=== PATIENT | female | born 1945 | race Caucasian/White ===

== ENCOUNTER → 2019-08-29 15:31 | Outpatient (CLI) | payer MEDICARE, SELFPAY ==
[2019-08-30 14:06] LABS: COVID19 Sendout Not Detected (Not Detect)
== END ==
PROVIDERS: Visit Provider Physician Assistant
DX: Z01.812 Encounter for preprocedural laboratory examination (principal)
CPT/HCPCS: 87635

== ENCOUNTER 2019-09-02 14:49 | Inpatient (IN) | payer MEDICARE, OTHER, SELFPAY ==
[2019-08-25 12:43] VITALS: BMI 26.4
[2019-09-01] VITALS (16 sets, daily range): BP systolic 132–181; BP diastolic 66–112; PULSE 56–83; RESP 11–19; TEMP 35.7–36.7; O2SAT 90–100; BMI 25.2
--- NOTE | 2019-09-01 | DI.RAD.S_ITS ---
PROCEDURE: XR KNEE RT 1TO2V INDICATIONS: TOTAL RIGHT KNEE TECHNIQUE: 2 view(s) of the knee acquired. COMPARISON: [facility] [place], XR KNEE ARTHRITIC SERIES BI, 03/25/2019, 16:15. FINDINGS: Bones: Patient is status post knee joint arthroplasty. Hardware components are in expected positions. Visualized bony structures are intact. Soft tissues: Overlying postoperative changes are noted. IMPRESSION: Satisfactory appearance of the right total knee arthroplasty. Dictated by: Kenan Cheung M.D. on 09/01/2019 at 16:06 Approved by: Kenan Cheung M.D. on 09/01/2019 at 16:17
[2019-09-01] MEDS: ACETAMINOPHEN 325 MG TABLET 975 MG PO (12:15)
[2019-09-01] MEDS: LACTATED RINGERS 1,000 ML 42 ML IV ×2 (12:15→15:52)
--- NOTE | 2019-09-01 13:08 | PM.OP.1 ---
Operative Date/Time/Diagnoses Date of procedure: 09/01/19 Time of procedure: 15:23 Pre-op diagnosis: Right knee osteoarthritis Post-op diagnosis: same Procedure & Clinicians Procedure: Right total knee arthroplasty Same procedure as scheduled: Yes Indications: The patient presents today for total knee arthroplasty after failure of conservative treatment. The nature of the procedure including the risks and benefits, alternatives, postoperative course and expected outcome were discussed and all questions answered. Consent was obtained. Operative site confirmed and marked. Surgeon: Meir Mustafa Cured Meats Supervisor: Diego Mcneil Anesthesia Type: General and Local Operative Notes Findings: Spinal anesthesia was attempted but unsuccessful. The distal femoral cut was made at +1 as she had a slight flexion contracture. The tibial cut was made at 11 mm off the less affected lateral side. The knee balanced well with just routine osteophyte removal and soft tissue exposure. There was excellent medial and lateral balance in both flexion and extension with a 9 mm tray. Patellar tracking was excellent. Closure Type: primary Specimen(s): none sent Prosthetic devices, grafts, tissues, transplants, or devices: Kat and Nephew Becki BCS: 5 femoral component, 3 tibial component, 9 mm BCS polyethylene tray and 32 x 9 mm round patella Applied: implant(s) Estimated Blood Loss (mL): 5 Blood products transfused: none Tourniquet time (min): 49 Procedure in detail: The patient was taken to the operative suite and placed under anesthesia. The patient was given prophylactic antibiotics prior to surgery. The patient was also given tranexamic acid, 1 g, just prior to surgery for postoperative hemostasis. The lateral knee was prepped and the joint injected with 20 mL of 1% Lidocaine with epinephrine. The knee was then prepped and draped in usual sterile fashion. The leg was exsanguinated with an Esmarch dressing and the tourniquet raised to 250 torr. A 15 cm anterior incision was made. Next a medial trivector arthrotomy was made. The extensor mechanism was marked to ensure accurate repair. Initial exposing dissection was carried out medially and laterally. The knee was then flexed and the intramedullary femoral guide cece placed. The distal femoral cut was made in 6? of valgus at the +23 position. The femoral size was measured and the appropriate cutting block was then placed and the anterior, posterior and chamfer cuts made. The intramedullary tibial alignment cece was then placed. The guide was set to remove approximately 11 mm from the less affected lateral side. The proximal tibial cut was then made with an oscillating saw. All meniscus and bony debris was then removed. Posterior femoral osteophytes removed with a curved osteotome. Flexion extension gaps were checked. No specific balancing was required other than routine exposure and removal of osteophytes. The soft tissues were then injected with a combination of 20 mL of half percent Marcaine with epinephrine and 20 mL of Exparel. The trial components were then placed. The knee was then extended and the patellar thickness was measured and a cut made removing approximately 9 mm of bone. The patella was then sized and drilled. Some excess lateral bone was excised and the patellofemoral ligament released. The knee went into full extension and flexion beyond 130?. There was excellent medial-lateral balance throughout motion. Patellar tracking was excellent. The trial components were removed and the knee was cleansed with Pulsavac irrigation and dried. The final components were cemented with high viscosity vacuum mixed bone cement with antibiotics. The joint was filled with a dilute Betadine solution. The knee was held in extension and the patellar clamped until the cement was adequately cured. The knee was then irrigated. The extensor mechanism was closed with 5 interrupted #1 Vicryl sutures and a running Quill suture at approximately 90 degrees of flexion. The joint was then injected with a combination of 1 g of tranexamic acid and 20 mL of quarter percent Marcaine with epinephrine. The subcutaneous tissue was closed with 2 0 Vicryl. The skin was closed with a Zip-Close device. An Aquacel dressing and Joe wrap were then applied. The patient tolerated the procedure well and was returned to recovery room in good condition. Complications: none Post-operative Condition: stable Disposition: PACU Plan for aftercare: [facility] Care Protocol.
--- NOTE | 2019-09-01 13:10 | PM.PREOP ---
Pre-operative Note COVID-19 COVID-19 status: Negative Result date/Date tested (Pos, Neg/Pending): 08/29/19 Interval Note History & Physical reviewed/Exam performed by Physician: Yes Changes to H&P: No
[2019-09-01] MEDS: CEFAZOLIN 2 GM/100 ML FROZ.PIGGY IV ×2 (14:06→21:55)
[2019-09-01] MEDS: TRANEXAMIC ACID 1,000 MG VIAL 1000 MG IV (14:20)
--- NOTE | 2019-09-01 14:36 | SUR.OPER ---
Supine on padded OR bed. Pillow under head, arms secured on padded armboards <90 degree abduction. Safety belt across torso. Non-operative leg secured with tape over blanket over lower leg. Operative leg secured in Jonathon positioner. Foam padded brace at thigh of operative leg.
--- NOTE | 2019-09-01 14:39 | SUR.OPER ---
zip dressing used
[2019-09-01] MEDS: BUPIVACAINE 0.25% W/ EPI (PF) 40 ML, BUPIVACAINE LIPOSOME 266 MG, SODIUM CHLORIDE 0.9% ... INJ (14:43)
[2019-09-01] MEDS: BUPIVACAINE 0.25% W/ EPI (PF) 20 ML, TRANEXAMIC ACID 1,000 MG, SODIUM CHLORIDE 0.9% 10 ML INJ (14:44)
[2019-09-01] MEDS: LIDOCAINE 1% W/EPI 20 ML INJ (14:46)
[2019-09-01] MEDS: HYDROMORPHONE 2 MG INJ IV ×4 (15:49→16:09)
[2019-09-01] MEDS: OXYCODONE IR 5 MG TABLET PO (16:17)
--- NOTE | 2019-09-01 17:17 | SUR.PHASEI ---
Pt medicated for pain with dilaudid and percolone. Stated pain 07/20. face relaxed, eyes closed between care. Report called to ZUHAIR Trevino. Pt transported up on 1/l nasal cannula. Left pt in stable condition, bed low locked and callbell in hand.
[2019-09-01] MEDS: LACTATED RINGERS 1,000 ML 100 ML IV (17:28)
--- NOTE | 2019-09-01 17:39 | PC.NURSE ---
Addendum entered by Nayla Woody R.N. 09/01/19 20:53: Patient declining to take HS meds due to nausea and sedation effects she experiencing. Original Note: Admission note: Arrived at 1704 from PACU already in bed. Skin tear noted distal to surgical site and covered with Allevyn. At time of admission patient appears to be resting comfortably with eyes closed. Arousable to voice and touch but tends to fall asleep when answering questions appropriately. On 1.5L O2 by NC to maintain sats WNL. Allowing to rest at this time, bed alarm on and functioning, call light in reach, will reeducate when patient is more awake.
[2019-09-01] MEDS: ONDANSETRON 4 MG/2 ML INJ IV (19:56)
[2019-09-01] MEDS: HYDROMORPHONE 0.5 MG INJ 0.2 MG IV (21:58)
[2019-09-01] MEDS: METOCLOPRAMIDE 10 MG/2 ML INJ IV (22:39)
[2019-09-02] VITALS (9 sets, daily range): BP systolic 146–156; BP diastolic 68–90; PULSE 63–89; RESP 16–20; TEMP 36.4–37.3; O2SAT 89–98
[2019-09-02] MEDS: ONDANSETRON 4 MG/2 ML INJ IV ×4 (01:21→20:10)
[2019-09-02] MEDS: HYDROMORPHONE 0.5 MG INJ 0.2 MG IV ×3 (03:23→18:37)
[2019-09-02] MEDS: LACTATED RINGERS 1,000 ML 100 ML IV ×2 (03:51→14:13)
[2019-09-02 05:30] LABS: Hematocrit 39.1 % (36-46); Hemoglobin 12.9 g/dL (12.0-16.0)
[2019-09-02] MEDS: CEFAZOLIN 2 GM/100 ML FROZ.PIGGY IV (05:35)
[2019-09-02] MEDS: METOCLOPRAMIDE 10 MG/2 ML INJ IV ×2 (08:10→17:05)
--- NOTE | 2019-09-02 11:06 | PM.PNPO.1 ---
Subjective Subjective Date Patient Seen: 09/02/19 Time Patient Seen: 11:06 Interval history: Pain is [id number]. Denies fever chills. No nausea vomiting. Patient has gotten up to bedside chair twice with physical therapy. Patient has not walked in halls. Patient does have plans to have assistance at home. Exam Vital Signs (past 8 hours): - 09/02/19 04:15 09/02/19 07:00 Temperature 97.9 F 97.5 F L Pulse Rate 89 81 Respiratory Rate 20 16 Blood Pressure 146/68 H 153/86 H Pulse Oximetry 96 98 Oxygen Delivery Method Nasal Cannula Oxygen Flow Rate 0 Narrative Exam Narrative: Pleasant 74-year-old female resting comfortably in bed in no apparent distress. Right knee dressing is clean, dry and intact. No calf pain. Negative Homans. Right leg is warm and dry. Motor functions intact distally. Sensation grossly intact to light touch. Objective Labs Result Diagrams: 09/02/19 04:55 Labs: Laboratory Results - last 24 hr 09/02/19 04:55 Hgb 12.9 Hct 39.1 Assessment & Plan Post-op Postoperative Procedures: Procedures Operation Date: 09/01/19 12:45 Actual Procedures Side Surgeon p Total Knee Arthroplasty Right Meir Mustafa MD Patient refuses aspirin and will be started on Lovenox for DVT prophylaxis. Mobilize with physical therapy. Likely discharge home in 1-2 days. Quality VTE Deep Vein Thrombosis/Pulmonary Embolism Present on Admission: No
[2019-09-02] MEDS: FLUoxetine 10 MG CAPSULE PO (11:12)
[2019-09-02] MEDS: BUDESONIDE 3 MG CAP PO (11:12)
[2019-09-02] MEDS: ACETAMINOPHEN 325 MG TABLET 650 MG PO ×3 (11:12→20:10)
[2019-09-02] MEDS: HYDROMORPHONE 2 MG TABLET PO ×3 (11:12→17:05)
[2019-09-02] MEDS: DOCUSATE 100 MG CAPSULE PO ×2 (11:13→20:10)
[2019-09-02] MEDS: ENOXAPARIN 40 MG/0.4 ML SYRINGE SUBCUT (11:16)
--- NOTE | 2019-09-02 11:56 | PT.IIE ---
Current Diagnoses Unilateral primary osteoarthritis, right knee (09/01/19) Surgery Performed Operation Date: 09/01/19 12:45 Actual Procedures p Total Knee Arthroplasty(Right) - Meir Mustafa MD Surgical History (Last Updated 08/25/19 @ 13:15 by Jrodyn Douglas RN) H/O total hysterectomy (Acute 1992) History of dilation and curettage (Acute) History of tonsillectomy and adenoidectomy (Acute 1967) Hx of appendectomy (Acute ~1947) Hx of bilateral cataract extraction (Acute) S/P epidural steroid injection (Acute) Medical History (Last Updated 08/25/19 @ 13:15 by Jordyn Douglas RN) Anxiety (Acute) BCC (basal cell carcinoma) (Acute) Easy bruisability (Acute) HLD (hyperlipidemia) (Acute) Microscopic colitis (Acute) Mitral valve prolapse (Acute ~2016) Osteoarthritis (Acute) Physical Therapy Inpatient Evaluation/Re-Eval M1 PT/OT-IP Prior Functional Status Start: 09/02/19 08:58 Freq: NEEDED Status: Active Protocol: Document 09/02/19 11:35 AW (Rec: 09/02/19 11:56 AW [email or web address]) Medical Review Prior Functional Status Medical History Reviewed Yes Communication WNL. Pt is an effective verbal communicator. Mobility and Gait Pt reports independent ambulation at home but describes remaining close to furniture and vieira when feeling weak or unsteady. Pt reports feeling unsteady on uneven ground which she avoids when possible. Activities of Daily Living and IADL's Independent Prior Functional Level (Other details) Pt reports one fall while gardening over the past year. Social History Household Members none Living Arrangements House Number of Floors (Floors) One Floor Number of Stairs To Enter/Railing? Level entry. Home Environment High Toilet,Walk in Shower,Tub /Shower,Built-In Shower Seat Home Equipment Front Wheel Walker,Straight Cane,Hand Held Shower,Long Handled Shoe Horn,Shirt Finisher,Grab Bars In Shower Additional Social History Comment Pt has a tall recliner at home . She lives alone but has planned for her friend, Batsheva, to stay at least one night with her at discharge. M2 PT-IP Current Condition Start: 09/02/19 08:58 Freq: NEEDED Status: Active Protocol: Document 09/02/19 11:35 AW (Rec: 09/02/19 11:56 AW [email or web address]) Physical Therapy Current Condition Current Condition Evaluation Date 09/02/19 Treatment Diagnosis R TKA; difficulty in walking Onset Date 09/01/19 Weight Bearing Status Weight Bearing Status Weight Bear as Tolerated M3 PT-IP Subjective Start: 09/02/19 08:58 Freq: NEEDED Status: Active Protocol: Document 09/02/19 11:35 AW (Rec: 09/02/19 11:56 AW [email or web address]) Subjective Physical Therapy Visit Type Type Initial Evaluation Visit Start Time 09:52 Visit Stop Time 10:31 Total Visit Minutes 39 Physical Therapy Visit Comments Patient Comments Pt has not been out of bed yet but is willing to mobilize with PT Patient Goals Ultimately, to get back to gardening safely Therapy Pain Assessment Pain When Pain Assessed During Mobility Pain Present Pain Present Pain Reported Location Right Knee Intensity 7 Pain Management Techniques Apply Cold,Timing of Activity with Medications M4 PT-IP Mobility and Gait Start: 09/02/19 08:58 Freq: NEEDED Status: Active Protocol: Document 09/02/19 11:35 AW (Rec: 09/02/19 11:56 AW [email or web address]) PT-Bed Mobility Assessment Supine to Sit Supine to Sit Minimal Assistance,1 Person Assistance PT-Transfer Assessment Sit to and From Stand Sit to and from Stand Moderate Assistance,1 Person Assistance,Use of Upper Extremities Equipment Transfer Assistive Device Gait Belt,Front Wheeled Walker Transfers Transfer Destination Chair,Bedside Commode Transfer Ability Level of Assist Moderate Assistance,1 Person Assistance,Use of Upper Extremities Comments Mobility Comments Pt was resting in bed with complaint of nausea upon PT arrival. Supine BP was 145/73 HR 79. With HOB flat, pt completed supine to sit with min assist x 1 for support of her operative leg. She was able to sit EOB with and without UE support. With cues to push off the bed with her arms, pt was able to stand mod A x 1 using FWW but required max cues and mod A to shift her weight forward due to strong posterior lean. She step pivot transferred with FWW to the [facility] mod A x 1 with verbal and tactile cues for quad activation. After voiding , pt stood from the [facility] mod A x [address] her hands on the walker frame. She side stepped to her right to transfer to the chair mod A x 1 with cues to reach both hands for the chair arms in order to control her descent. Pt was positioned on the chair with call light and all needs in reach, fresh ice pack applied. Pt was left with RENTAL CAR FERRY DRIVER attending. Gait Assessment Gait Gait Assistance Required: Moderate Assistance,1 Person Assist Distance (Feet) 3 Able to Maintain Weight Bearing Status Yes During Gait Assistive Devices Assistive Device Gait Belt,Front Wheeled Walker Gait Deviations General Gait Pattern Antalgic,Decreased Stride Length,Decreased Feet Clearance,Flexed Trunk,Step-to Gait Factors Limiting Gait Function Factors Limiting Gait Function Decreased Activity Tolerance, Decreased Sensation,Decreased Strength,Difficulty Following Directions,Limited Range of Motion,Pain,Poor Balance,Poor Safety Awareness Comments Gait Comments Transfers only. See mobility comments. Stair Climbing Assessment Comments Stair Climbing Comments Not assessed. No stairs at home. PT-Balance Assessment Sitting Balance and Reactions Static Sitting Balance Ability Good Dynamic Sitting Balance Ability Good Standing Balance and Reactions Static Standing Balance Ability Poor Dynamic Standing Balance Ability Poor Device Used FWWW M5 PT-IP Objective Assessments Start: 09/02/19 08:58 Freq: NEEDED Status: Active Protocol: Document 09/02/19 11:35 AW (Rec: 09/02/19 11:56 AW [email or web address]) Orientation Orientation/Cognition Level of Alertness Alert Orientation Name,Day of Week,Place, Situation Language Function Ability No Deficits Noted Safety Awareness Decreased Safety Awareness Memory Description No Deficits Noted Gross Range of Motion Lower Extremity ROM Assessment Right Impaired Strength Lower Extremity Strength Assessment Bilaterally Impaired Comments Strength Comments L LE grossly 4/5 Coordination Assessment Gross Coordination Gross Coordination WNL Sensation Assessment Sensation Gross Sensation Right LE Impaired Proprioception (Position) Impaired Muscle Tone Muscle Tone WNL Yes M6 PT-IP Treatment Start: 09/02/19 08:58 Freq: NEEDED Status: Active Protocol: Document 09/02/19 11:35 AW (Rec: 09/02/19 11:56 AW [email or web address]) Physical Therapy Treatment Exercises Exercises Ankle Pumps,Quad Sets,Heel Slides,Passive Knee Extension Hang Education Education Provided Precautions,Weight Bearing Status,Post-Op Packet,Safety Other Treatments Other Treatment Performed Provided education on role of PT, plan of care, weightbearing status, and safe use of FWW. M7 PT-IP Assessment and Plan Start: 09/02/19 08:58 Freq: NEEDED Status: Active Protocol: Document 09/02/19 11:35 AW (Rec: 09/02/19 11:56 AW [email or web address]) PT Summary Assessment and Plan Potential Rehabilitation Potential Fair Status of Condition at Evaluation Evolving Summary Impairments Pain,ROM,Strength,Balance, Sensation,Bed Mobility, Transfers,Gait,Activity Tolerance Assessment Summary Vanessa is a 74 yo woman seen for PT evaluation on POD1 following R TKA. She is an independent ambulator for short distances at baseline. On evaluation, she showed good effort with all activities and required min to mod assist with all mobility. She was limited at this encounter due to nausea and pain. PT anticipates she will be safe to discharge home once she has met the functional goals of this plan of care and is medically cleared. She may require 24/7 assist with all mobility. Outpatient PT has not yet been arranged. Goals Bed Mobility Goal Standby Assistance Transfer Goal Standby Assistance,Front Wheeled Walker Gait Goal Standby Assistance,Front Wheel Walker Gait Distance 150 Days to Meet Goals 4 Frequency of Treatment Frequency Of Treatment Twice a Day Treatment Plan Physical Therapy Treatment Plan Bed Mobility Training,Transfer Training,Gait Training, Therapeutic Exercise,Balance Retraining,Post Op Education, Discharge Planning,Hot or Cold Pack,Neuromuscular Re-ed Other Recommendations and Next Treatment transfers; gait training with Focus FWW; ther ex Recommendations To Nursing Amount of Assist Needed 1 Person Assist Discharge Recommendations PT Discharge Recommendations Home with Assistance,Home with 24/7 Assist,Outpatient PT Other Discharge Recommendations Home with assist vs 24/7 assist and OP PT Transportation Needs at Discharge Private Vehicle
--- NOTE | 2019-09-02 12:23 | PC.NURSE ---
Performed Lovenox teaching with Pt. Pt states she feels she will be able to give herself Lovenox shots as directed.
--- NOTE | 2019-09-02 14:35 | CM.DANOTE ---
Addendum entered by Constance Kat R.N. 09/03/19 13:46: CM met with patient at the bedside and discussed D/C plans. Patient asked for some HH services when she D/C from the hospital. Patients son and daughter in law live next door and plan on helping her with her recovery as well as Patients friend Batsheva will be staying with her for a few days at D/C to help. HH services would be nice for PT and OT as well as a shower aid during her recovery. patients preferred provider is [facility]. Cm/Rn sent F2F to [facility] as well as clinicals for their review. they will just need D/C summary for the patient when she is D/C home, Constance Kat RN Original Note: DCP Assessment: EMR reviewed: Patient is a 74 yr old female who had a Rt TKA preformed by Dr. Espitia. LU/RN met with patient at the bedside and explained role. Patient was alert and oriented x3 at time of visit. Patient lives in a single level home by her self. patient does have a FWW and cane to help when she gets home. Patients friend Batsheva plans on staying with the patient for a few days post discharge. Patient is Independent with ADL's and states she drives at baseline. PT recommends home with assistance and OP PT. Patient is a [facility] patient. I: Medicare and [facility] Plan: D/C home with friend Batsheva's assistance. No identified D/C planning needs notes at this time. CM will follow to assist with any new D/C planning needs that may arise. Constance Kat RN Discharge Planning/Care Management CM Discharge Assessment Start: 09/02/19 14:34 Freq: Status: Active Protocol: Document 09/02/19 14:34 (Rec: 09/02/19 14:35 [id number]) Discharge Planning Assessment Assigned Wellhead Pumper Constance Kat RN DPOA/Assigned Designee Name Viktor Villalobos (son) Contact Information [phone] Advance Directives? No History Provided By Patient Has Patient been admitted in last 30 No days? Prior Living Arrangements House Household Members none Type of transporation used prior to Drives own vehicle admit Independent with ADL's Yes Is patient alert and oriented? Yes Caregiver for Another No DME Already Rented / Owned Elevated Toilet Seat,FWW / Walker,Cane Patient/Family Preference OP PT Therapy Discharge Plan Home Whiteboard Updated in Patient Room with Yes name and ext. # of Wellhead Pumper Review Status In Process Next Review Type Continued Stay Review Pre-Anesthesia Assessment Start: 08/25/19 12:43 Freq: Status: Complete Protocol: Document 08/25/19 12:43 [place] (Rec: 08/25/19 13:57 CAB [id number]) Pre-Anesthesia Assessment Patient Information Reviewed Via Phone Assessment Assessment Completed With Patient Comment Labs/EKG done per pt, pt needs to schedule COVID, number given Primary Care Provider Lisa Weeks Seen Specialist in Last 12 Months Yes Specialist Seen Wire Basket Maker,Orthopedist Primary Language Irish Classics Professor Required No Height 165.1 cm Weight 72.121 kg Body Mass Index (BMI) 26.4 Hearing Ability Normal Visual Impairment No Limitations Visual Assist None Dentition Type Teeth, Natural Present Barriers to Learning None Hx Anesthesia Reactions No Hx Family Anesthesia Reaction No Hx Malignant Hyperthermia No Hx Blood Transfusions No Anesthesia Review Requested No alcohol intake current alcohol intake frequency a few times a month Smoking Status Never smoker Pain Present Pain Reported Musculoskeletal Symptoms Abnormal Gait,Back Pain, Difficulty Walking,Joint Pain History of Falling (Recent or History of No ) Patient is completely paralyzed or No completely immobile Mental Status Oriented to own ability Is patient on oxygen? No Does patient have PARKER/SOB No Hx Sleep Apnea No Currently Taking a Beta Rodolfo No Can You Climb a Flight of Stairs Without Yes SOB Hx Chest Pain No Hx SOB No Hx Syncope or Dizziness No Anti-Coagulant Therapy No Has a Answering Service Operator No Cardiac Testing No Hx Pacemaker/ICD No Pacemaker Rep Required? No Cardiac Clearance Received Not Applicable Diet Type At Home Regular dysphagia No: Diary and soy free diet Gastrointestinal Symptoms Constipation,Cramping,Diarrhea ,Reflux Comment Hx of microscopic colitis Urinary Catheter Present No Hx Urinary Self Catheterization No Diabetes No Patient No Lactating No Hx Drug Resistant Organism No Presence of External or Internal Medical Yes: Bilat eye lens Devices Have you had any close contact with No someone diagnosed with COVID-19? Marital Status / Lives With none Prior Living Arrangements House Number of Floors (Floors) One Floor Support System Child/Children,Friend(s) Does the Patient Have Assistance After Son, [id number] will Surgery assist w/care Patient Discharge Plan Description Return Home Comment Pt not advised on length of stay per surgeon Feels Safe in Current Environment Yes Been Physically Hurt or Threatened By a No Person in Current Environment Do you have thoughts of harming yourself None or others? Are you currently considering suicide? No Do you have a plan to hurt yourself or No Plan others? Do You Have Any Spiritual Beliefs That No May Affect Your HC Choices? Do You Have Any Cultural Practices That No May Affect Your HC Choices? Who Can We Speak to About Patient's Care Family, friends Identifying Code for Release of Patient Declines to issue Information Health Care Proxy/Next of Kin Viktor (son)Luciana (daughter -in-law) Health Care Proxy Phone Number Viktor: [phone] Luciana: [phone] Emergency Contact Name Viktor (son)Luciana (daughter -in-law) Emergency Contact Phone Number Viktor: [phone] Luciana: [phone] Advance Directives? No Power of Set O Type Operator No PAC Instructions Do not shave/clip surgical site,Durable medical equipment ,Medications to take/avoid, Nasal antibiotic,No ETOH/ petroleum product on skin DOS, NPO,Pre-surgical wash,Sturdy shoes/comfortable clothes,Do not bring valuables and remove jewelry
--- NOTE | 2019-09-02 15:05 | PT.IPTN ---
Current Diagnoses Unilateral primary osteoarthritis, right knee (09/02/19) Surgery Performed Operation Date: 09/01/19 12:45 Actual Procedures p Total Knee Arthroplasty(Right) - Meir Mustafa MD Physical Therapy Treatment Note M2 PT-IP Current Condition Start: 09/02/19 08:58 Freq: NEEDED Status: Active Protocol: Document 09/02/19 11:35 AW (Rec: 09/02/19 11:56 AW [email or web address]) Physical Therapy Current Condition Current Condition Evaluation Date 09/02/19 Treatment Diagnosis R TKA; difficulty in walking Onset Date 09/01/19 Weight Bearing Status Weight Bearing Status Weight Bear as Tolerated M3 PT-IP Subjective Start: 09/02/19 08:58 Freq: NEEDED Status: Active Protocol: Document 09/02/19 14:54 AW (Rec: 09/02/19 15:05 AW [email or web address]) Subjective Physical Therapy Visit Type Type Treatment Note Visit Start Time 13:20 Visit Stop Time 13:45 Total Visit Minutes 25 Physical Therapy Visit Comments Patient Comments Pt is willing to work with PT Therapy Pain Assessment Pain When Pain Assessed During Mobility Pain Present Pain Present Pain Reported Location Right Knee Intensity 7 Pain Management Techniques Apply Cold,Timing of Activity with Medications M4 PT-IP Mobility and Gait Start: 09/02/19 08:58 Freq: NEEDED Status: Active Protocol: Document 09/02/19 14:54 AW (Rec: 09/02/19 15:05 AW [email or web address]) PT-Bed Mobility Assessment Sit to Supine Sit to Supine Minimal Assistance,1 Person Assistance PT-Transfer Assessment Sit to and From Stand Sit to and from Stand Minimal Assistance,Moderate Assistance,1 Person Assistance ,Use of Upper Extremities Equipment Transfer Assistive Device Gait Belt,Front Wheeled Walker Transfers Transfer Destination Bed Transfer Technique pt ambulated with FWW Transfer Ability Level of Assist Minimal Assistance,1 Person Assistance,Use of Upper Extremities Comments Mobility Comments Pt was sitting on the BSC with MANAGER BAKERY when PT arrived. PT took over and assisted the pt to stand from the toilet min A x 1 using the arms on the commode to push off. She then ambulated around the foot of the bed 15' CGA with FWW and sat EOB. She then stood from the bed x 2 mod A x 1, requiring greater assist because of the softer surface. She sat again and completed sit to supine min A x 1 to guide the operative leg into the bed. Pt was positioned there with call light and all needs within reach. Gait Assessment Gait Gait Assistance Required: Contact Guard Assist,1 Person Assist Distance (Feet) 15 Able to Maintain Weight Bearing Status Yes During Gait Assistive Devices Assistive Device Gait Belt,Front Wheeled Walker Gait Deviations General Gait Pattern Antalgic,Decreased Stride Length,Decreased Feet Clearance,Flexed Trunk,Step-to Gait Factors Limiting Gait Function Factors Limiting Gait Function Decreased Activity Tolerance, Decreased Sensation,Decreased Strength,Difficulty Following Directions,Limited Range of Motion,Pain,Poor Balance,Poor Safety Awareness Comments Gait Comments Pt ambulated in the room using step-to pattern with FWW CGA. PT-Balance Assessment Sitting Balance and Reactions Static Sitting Balance Ability Good Dynamic Sitting Balance Ability Good Standing Balance and Reactions Static Standing Balance Ability Fair Dynamic Standing Balance Ability Fair Device Used FWW M5 PT-IP Objective Assessments Start: 09/02/19 08:58 Freq: NEEDED Status: Active Protocol: Document 09/02/19 11:35 AW (Rec: 09/02/19 11:56 AW [email or web address]) Orientation Orientation/Cognition Level of Alertness Alert Orientation Name,Day of Week,Place, Situation Language Function Ability No Deficits Noted Safety Awareness Decreased Safety Awareness Memory Description No Deficits Noted Gross Range of Motion Lower Extremity ROM Assessment Right Impaired Strength Lower Extremity Strength Assessment Bilaterally Impaired Comments Strength Comments L LE grossly 4/5 Coordination Assessment Gross Coordination Gross Coordination WNL Sensation Assessment Sensation Gross Sensation Right LE Impaired Proprioception (Position) Impaired Muscle Tone Muscle Tone WNL Yes M6 PT-IP Treatment Start: 09/02/19 08:58 Freq: NEEDED Status: Active Protocol: Document 09/02/19 14:54 AW (Rec: 09/02/19 15:05 AW [email or web address]) Physical Therapy Treatment Exercises Exercises Ankle Pumps,Quad Sets,Heel Slides,Passive Knee Extension Hang Education Education Provided Weight Bearing Status,Safety Other Treatments Other Treatment Performed Pt able to participate with heel slides actively this PM. M7 PT-IP Assessment and Plan Start: 09/02/19 08:58 Freq: NEEDED Status: Active Protocol: Document 09/02/19 14:54 AW (Rec: 09/02/19 15:05 AW [email or web address]) PT Summary Assessment and Plan Potential Rehabilitation Potential Good Status of Condition at Evaluation Stable Summary Impairments Pain,ROM,Strength,Balance, Sensation,Bed Mobility, Transfers,Gait,Activity Tolerance Assessment Summary Vanessa was able to progress her gait distance this PM. Pain is still poorly-controlled but pt demonstrated good willingness. Depending on progress, pt may require HH PT . Goals Bed Mobility Goal Standby Assistance Transfer Goal Standby Assistance,Front Wheeled Walker Gait Goal Standby Assistance,Front Wheel Walker Gait Distance 150 Days to Meet Goals 4 Frequency of Treatment Frequency Of Treatment Twice a Day Treatment Plan Physical Therapy Treatment Plan Bed Mobility Training,Transfer Training,Gait Training, Therapeutic Exercise,Balance Retraining,Post Op Education, Discharge Planning,Hot or Cold Pack,Neuromuscular Re-ed Other Recommendations and Next Treatment transfers; gait training with Focus FWW; ther ex Recommendations To Nursing Amount of Assist Needed 1 Person Assist Discharge Recommendations PT Discharge Recommendations Home with Assistance,Home with /7 Assist,Home Health, Outpatient PT Other Discharge Recommendations Home with assist and OP vs HH PT Transportation Needs at Discharge Private Vehicle
[2019-09-02] MEDS: OXYCODONE IR 10 MG TABLET PO (20:09)
[2019-09-02] MEDS: SIMVASTATIN 20 MG TABLET PO (20:11)
[2019-09-02] MEDS: ALPRAZolam 0.5 MG TABLET PO (21:57)
[2019-09-02] MEDS: hydrOXYzine pamoate 25 MG CAPSULE PO (21:57)
[2019-09-03] VITALS (8 sets, daily range): BP systolic 145–165; BP diastolic 54–104; PULSE 80–92; RESP 15–18; TEMP 36.1–37; O2SAT 92–96
[2019-09-03] MEDS: LACTATED RINGERS 1,000 ML 100 ML IV (00:34)
[2019-09-03] MEDS: OXYCODONE IR 10 MG TABLET PO ×2 (02:52→06:15)
--- NOTE | 2019-09-03 08:57 | PM.PNPO.1 ---
Subjective Subjective Date Patient Seen: 09/03/19 Time Patient Seen: 08:57 Interval history: The patient reports her knee is still quite painful. It feels like it wants to collapse under her when she gets up with therapy. She does not feel like he is doing well to go home at this time. Exam Vital Signs (past 8 hours): - 09/03/19 06:00 Temperature 97.0 F L Pulse Rate 89 Respiratory Rate 16 Blood Pressure 150/104 H Pulse Oximetry 94 Oxygen Delivery Method Room Air,Nasal Cannula Oxygen Flow Rate 1.5 Narrative Exam Narrative: The dressing is intact. There is expected swelling. The leg is neurovascularly intact. Objective Labs Result Diagrams: 09/02/19 04:55 Assessment & Plan Post-op Postoperative Procedures: Procedures Operation Date: 09/01/19 12:45 Actual Procedures Side Surgeon p Total Knee Arthroplasty Right Meir Mustafa MD Postoperative day: 2 Postoperative status narrative: The patient is progressing more slowly than expected from her total knee. The knee itself looks good from a swelling and neurovascular standpoint. We will concentrate on trying to get her pain under control and increase her ambulation today. Plan discharge to home tomorrow. Time Spent With Patient Time with patient: less than 15 minutes Quality VTE Deep Vein Thrombosis/Pulmonary Embolism Present on Admission: No
[2019-09-03] MEDS: OXYCODONE IR 5 MG TABLET PO ×3 (09:04→21:22)
[2019-09-03] MEDS: BUDESONIDE 3 MG CAP PO (09:04)
[2019-09-03] MEDS: DOCUSATE 100 MG CAPSULE PO ×2 (09:04→21:21)
[2019-09-03] MEDS: FLUoxetine 10 MG CAPSULE PO (09:04)
[2019-09-03] MEDS: ACETAMINOPHEN 325 MG TABLET 650 MG PO ×3 (09:04→21:22)
[2019-09-03] MEDS: ENOXAPARIN 40 MG/0.4 ML SYRINGE SUBCUT (09:05)
--- NOTE | 2019-09-03 10:50 | PC.NURSE ---
Day shift note: Patient awake, alert, and pleasantly cooperative. Up OOB with PT after breakfast, mobility improving, however slow to move and requires frequent cues. Medicated with Oxycodone 5 mg x 1 tab for pain to right knee, adequately controlled, states 10 mg makes her too drowsy. No nausea, IVF discontinued. High risk precautions maintained, call light within reach.
--- NOTE | 2019-09-03 11:03 | PT.IPTN ---
Current Diagnoses Unilateral primary osteoarthritis, right knee (09/02/19) Surgery Performed Operation Date: 09/01/19 12:45 Actual Procedures p Total Knee Arthroplasty(Right) - Meir Mustafa MD Physical Therapy Treatment Note M2 PT-IP Current Condition Start: 09/02/19 08:58 Freq: NEEDED Status: Active Protocol: Document 09/02/19 11:35 AW (Rec: 09/02/19 11:56 AW [email or web address]) Physical Therapy Current Condition Current Condition Evaluation Date 09/02/19 Treatment Diagnosis R TKA; difficulty in walking Onset Date 09/01/19 Weight Bearing Status Weight Bearing Status Weight Bear as Tolerated M3 PT-IP Subjective Start: 09/02/19 08:58 Freq: NEEDED Status: Active Protocol: Document 09/03/19 10:30 HH (Rec: 09/03/19 11:03 HH [email or web address]) Subjective Physical Therapy Visit Type Type Treatment Note Visit Start Time 09:45 Visit Stop Time 10:14 Total Visit Minutes 29 Physical Therapy Visit Comments Patient Comments Pt agreed to mobilize with therapy. Therapy Pain Assessment Pain When Pain Assessed During Mobility Pain Present Pain Present Pain Reported Location Right Knee Intensity 7 Pain Management Techniques Timing of Activity with Medications M4 PT-IP Mobility and Gait Start: 09/02/19 08:58 Freq: NEEDED Status: Active Protocol: Document 09/03/19 10:30 HH (Rec: 09/03/19 11:03 HH [id number]) PT-Bed Mobility Assessment Supine to Sit Supine to Sit Contact Guard Assistance PT-Transfer Assessment Sit to and From Stand Sit to and from Stand Minimal Assistance,1 Person Assistance,Use of Upper Extremities Equipment Transfer Assistive Device Gait Belt,Front Wheeled Walker Transfers Transfer Destination Chair Transfer Technique pt ambulated with FWW Transfer Ability Level of Assist Minimal Assistance,1 Person Assistance,Use of Upper Extremities Comments Mobility Comments Pt was in bed upon PT arrival. Stated she is drowsy because of medications but agreed to mobilize with PT. Pt initially had difficulty lifting her RLE to EOB and this PT educated pt to use gait belt to assist. She was able complete after but slowly. Pt then request to wear shoes for mobility and she needed assistance to karel socks and shoes on RLE. Pt then stood up with FWW and min A with a staggered stance. Pt was able to amb up to door but felt nauseated and requested to return to chair to rest. Pt amb with step to pattern but cont with significant pain / . She needed to min A for stand to sit with FWW. Discussed with pt regarding possible need of short term rehab and she was open to it. Pt was very drowsy towards the end of session with her eyes hardly open during conversation. Gait Assessment Gait Gait Assistance Required: Contact Guard Assist,1 Person Assist Distance (Feet) 16 Able to Maintain Weight Bearing Status Yes During Gait Assistive Devices Assistive Device Gait Belt,Front Wheeled Walker Gait Deviations General Gait Pattern Antalgic,Decreased Stride Length,Decreased Feet Clearance,Flexed Trunk,Step-to Gait Factors Limiting Gait Function Factors Limiting Gait Function Decreased Activity Tolerance, Decreased Sensation,Decreased Strength,Difficulty Following Directions,Limited Range of Motion,Pain,Poor Balance,Poor Safety Awareness Comments Gait Comments Pt ambulated in the room using step-to pattern with FWW CGA. PT-Balance Assessment Sitting Balance and Reactions Static Sitting Balance Ability Good Dynamic Sitting Balance Ability Good Standing Balance and Reactions Static Standing Balance Ability Fair Dynamic Standing Balance Ability Fair Device Used FWW M5 PT-IP Objective Assessments Start: 09/02/19 08:58 Freq: NEEDED Status: Active Protocol: Document 09/02/19 11:35 AW (Rec: 09/02/19 11:56 AW [email or web address]) Orientation Orientation/Cognition Level of Alertness Alert Orientation Name,Day of Week,Place, Situation Language Function Ability No Deficits Noted Safety Awareness Decreased Safety Awareness Memory Description No Deficits Noted Gross Range of Motion Lower Extremity ROM Assessment Right Impaired Strength Lower Extremity Strength Assessment Bilaterally Impaired Comments Strength Comments L LE grossly 4/5 Coordination Assessment Gross Coordination Gross Coordination WNL Sensation Assessment Sensation Gross Sensation Right LE Impaired Proprioception (Position) Impaired Muscle Tone Muscle Tone WNL Yes M6 PT-IP Treatment Start: 09/02/19 08:58 Freq: NEEDED Status: Active Protocol: Document 09/02/19 14:54 AW (Rec: 09/02/19 15:05 AW [email or web address]) Physical Therapy Treatment Exercises Exercises Ankle Pumps,Quad Sets,Heel Slides,Passive Knee Extension Hang Education Education Provided Weight Bearing Status,Safety Other Treatments Other Treatment Performed Pt able to participate with heel slides actively this PM. M7 PT-IP Assessment and Plan Start: 09/02/19 08:58 Freq: NEEDED Status: Active Protocol: Document 09/03/19 10:30 HH (Rec: 09/03/19 11:03 [id number]) PT Summary Assessment and Plan Potential Rehabilitation Potential Good Status of Condition at Evaluation Stable Summary Impairments Pain,ROM,Strength,Balance, Sensation,Bed Mobility, Transfers,Gait,Activity Tolerance Assessment Summary Vanessa performed similarly compared to yesterday but less discomfort with shoes on today. Pt cont to be very drowsy and slow possibly d/t medication. Pt cont to need close contact guard to min A for all mobility who lives alone at home (has a friend to stay over for 1 or 2 nights.) . Discussed with pt about possible short term rehab to improve mobility and strength and pt was open to it. Goals Bed Mobility Goal Standby Assistance Transfer Goal Standby Assistance,Front Wheeled Walker Gait Goal Standby Assistance,Front Wheel Walker Gait Distance 150 Days to Meet Goals 4 Frequency of Treatment Frequency Of Treatment Twice a Day Treatment Plan Physical Therapy Treatment Plan Bed Mobility Training,Transfer Training,Gait Training, Therapeutic Exercise,Balance Retraining,Post Op Education, Discharge Planning,Hot or Cold Pack,Neuromuscular Re-ed Other Recommendations and Next Treatment transfers; gait training with Focus FWW; ther ex Recommendations To Nursing Amount of Assist Needed 1 Person Assist Discharge Recommendations PT Discharge Recommendations Home with Assistance,Home with 02/09 Assist,Home Health,SNF Rehab,Outpatient PT Other Discharge Recommendations Discussed with pt about possible short term rehab to improve mobility and strength and pt was open to it. Transportation Needs at Discharge Private Vehicle
--- NOTE | 2019-09-03 13:20 | PT.IPTN ---
Current Diagnoses Unilateral primary osteoarthritis, right knee (09/02/19) Surgery Performed Operation Date: 09/01/19 12:45 Actual Procedures p Total Knee Arthroplasty(Right) - Meir Mustafa MD Physical Therapy Treatment Note M2 PT-IP Current Condition Start: 09/02/19 08:58 Freq: NEEDED Status: Active Protocol: Document 09/02/19 11:35 AW (Rec: 09/02/19 11:56 AW [email or web address]) Physical Therapy Current Condition Current Condition Evaluation Date 09/02/19 Treatment Diagnosis R TKA; difficulty in walking Onset Date 09/01/19 Weight Bearing Status Weight Bearing Status Weight Bear as Tolerated M3 PT-IP Subjective Start: 09/02/19 08:58 Freq: NEEDED Status: Active Protocol: Document 09/03/19 13:04 KS (Rec: 09/03/19 13:51 KS [email or web address]) Subjective Physical Therapy Visit Type Type Treatment Note Visit Start Time 13:04 Visit Stop Time 13:20 Total Visit Minutes 16 Number of CITY CLERK Visits 1 Physical Therapy Visit Comments Patient Comments Pt agreed to mobilize with therapy. Therapy Pain Assessment Pain When Pain Assessed During Mobility Pain Present Pain Present Pain Reported Location Right Knee Intensity 7 Scale Used Numeric (0 - 10) Pain Behaviors Guarding Pain Management Techniques Re-positioning M4 PT-IP Mobility and Gait Start: 09/02/19 08:58 Freq: NEEDED Status: Active Protocol: Document 09/03/19 13:04 KS (Rec: 09/03/19 13:51 KS [id number]) PT-Bed Mobility Assessment Sit to Supine Sit to Supine Minimal Assistance,1 Person Assistance,Head of Bed Elevated Scooting Scooting to Edge of Bed Contact Guard Assistance PT-Transfer Assessment Sit to and From Stand Sit to and from Stand Minimal Assistance,Moderate Assistance,1 Person Assistance ,Use of Upper Extremities Equipment Transfer Assistive Device Gait Belt,Front Wheeled Walker Transfers Transfer Destination Bed Transfer Technique pt ambulated with FWW Transfer Ability Level of Assist Minimal Assistance,1 Person Assistance,Use of Upper Extremities Comments Mobility Comments Pt sitting on EOB w/ nursing upon arrival from therapy. Max A for application of tennis shoes. Min to Mod A for sit<> stand from bed. Upon standing, pt had 2x posterior LOB w/ FWW and needed Min A to recover. Pt then ambulated ~25 ft in room w/ FWW and CGA. Pt reported increase in pain to 7/10 w/ ambulation. Pt ambulated w/ step to gait pattern, encouraged pt to initiate normalized gait w/ equal step length. Pt was able to tolerate more equalized step length w/ shorter stride length w/o increase in pain. Pt returned to bed d/t pain and fatigue. Pt Min A for sit< >sup for LE guidance into bed. Pt left in bed w/ all needs in reach. Gait Assessment Gait Gait Assistance Required: Contact Guard Assist,Minimum Assistance,1 Person Assist Distance (Feet) 25 Able to Maintain Weight Bearing Status Yes During Gait Assistive Devices Assistive Device Gait Belt,Front Wheeled Walker Gait Deviations General Gait Pattern Antalgic,Decreased Stride Length,Decreased Feet Clearance,Flexed Trunk,Step-to Gait Factors Limiting Gait Function Factors Limiting Gait Function Decreased Activity Tolerance, Decreased Sensation,Decreased Strength,Difficulty Following Directions,Limited Range of Motion,Pain,Poor Balance,Poor Safety Awareness Comments Gait Comments Please refer to mobility section for details. Stair Climbing Assessment Comments Stair Climbing Comments Not assessed. No stairs at home. PT-Balance Assessment Sitting Balance and Reactions Static Sitting Balance Ability Good Dynamic Sitting Balance Ability Good Standing Balance and Reactions Static Standing Balance Ability Fair Dynamic Standing Balance Ability Fair Device Used FWW M5 PT-IP Objective Assessments Start: 09/02/19 08:58 Freq: NEEDED Status: Active Protocol: Document 09/02/19 11:35 AW (Rec: 09/02/19 11:56 AW [email or web address]) Orientation Orientation/Cognition Level of Alertness Alert Orientation Name,Day of Week,Place, Situation Language Function Ability No Deficits Noted Safety Awareness Decreased Safety Awareness Memory Description No Deficits Noted Gross Range of Motion Lower Extremity ROM Assessment Right Impaired Strength Lower Extremity Strength Assessment Bilaterally Impaired Comments Strength Comments L LE grossly 4/5 Coordination Assessment Gross Coordination Gross Coordination WNL Sensation Assessment Sensation Gross Sensation Right LE Impaired Proprioception (Position) Impaired Muscle Tone Muscle Tone WNL Yes M6 PT-IP Treatment Start: 09/02/19 08:58 Freq: NEEDED Status: Active Protocol: Document 09/03/19 13:04 KS (Rec: 09/03/19 13:51 KS [email or web address]) Physical Therapy Treatment Education Education Provided Weight Bearing Status,Safety Other Treatments Other Treatment Performed Encouraged pt to complete LE strengthening exercises in bed . M7 PT-IP Assessment and Plan Start: 09/02/19 08:58 Freq: NEEDED Status: Active Protocol: Document 09/03/19 13:04 KS (Rec: 09/03/19 13:51 KS [id number]) PT Summary Assessment and Plan Potential Rehabilitation Potential Good Status of Condition at Evaluation Stable Summary Impairments Pain,ROM,Strength,Balance, Sensation,Bed Mobility, Transfers,Gait,Activity Tolerance Progress Towards Goals Slow Progress due to Pain,Slow Progress due to Activity Tolerance Assessment Summary Pt able to tolerate slightly more ambulation this PM w/ improvements in normalizing gait. Pt Min to Mod A for sit< >stand and had 2x post LOB requiring Min A for regain of balance, CGA for ambulation w/ cues, and Min A for sit<>sup in bed for LE guidance. Pt will benefit from continued rehab to improve strength and mobility. D/c depending on progress, but likely HHPT. Goals Bed Mobility Goal Standby Assistance Transfer Goal Standby Assistance,Front Wheeled Walker Gait Goal Standby Assistance,Front Wheel Walker Gait Distance 150 Days to Meet Goals 4 Frequency of Treatment Frequency Of Treatment Twice a Day Treatment Plan Physical Therapy Treatment Plan Bed Mobility Training,Transfer Training,Gait Training, Therapeutic Exercise,Balance Retraining,Post Op Education, Discharge Planning,Hot or Cold Pack,Neuromuscular Re-ed Other Recommendations and Next Treatment transfers; gait training with Focus FWW; ther ex Recommendations To Nursing Amount of Assist Needed 1 Person Assist Discharge Recommendations PT Discharge Recommendations Home with Assistance,Home with 02/09 Assist,Home Health,SNF Rehab,Outpatient PT Other Discharge Recommendations Discussed with pt about possible short term rehab to improve mobility and strength and pt was open to it. Transportation Needs at Discharge Private Vehicle
[2019-09-03] MEDS: SIMVASTATIN 20 MG TABLET PO (21:21)
[2019-09-03] MEDS: ALPRAZolam 0.5 MG TABLET PO (21:21)
[2019-09-04] VITALS (7 sets, daily range): BP systolic 132–154; BP diastolic 69–91; PULSE 16–93; RESP 16–19; TEMP 35.7–36.8; O2SAT 92–96
--- NOTE | 2019-09-04 00:28 | PC.NURSE ---
Addendum entered by Rin Jones R.N. 09/04/19 07:33: Neuros remained intact all shift Original Note: R knee dressing w/scant amount of drainage. Neuros intact. Allyvyn to R leach skin tear C/D/I. Pt c/o of 6/10 pain to R knee but would like to wait for pain meds. Ice applied to area.
[2019-09-04] MEDS: OXYCODONE IR 5 MG TABLET PO ×6 (05:03→22:46)
[2019-09-04] MEDS: ENOXAPARIN 40 MG/0.4 ML SYRINGE SUBCUT (08:25)
[2019-09-04] MEDS: ACETAMINOPHEN 325 MG TABLET 650 MG PO ×3 (08:25→21:03)
[2019-09-04] MEDS: DOCUSATE 100 MG CAPSULE PO ×2 (08:25→21:03)
[2019-09-04] MEDS: FLUoxetine 10 MG CAPSULE PO (08:26)
[2019-09-04] MEDS: SODIUM CHLORIDE 0.9% FLUSH 10 ML IV ×2 (08:26→21:03)
[2019-09-04] MEDS: BUDESONIDE 3 MG CAP PO (08:27)
[2019-09-04] MEDS: polyethylene glycoL 3350 17 GM POWD.PACK PO (08:37)
--- NOTE | 2019-09-04 10:38 | PT.IPTN ---
Current Diagnoses Unilateral primary osteoarthritis, right knee (09/03/19) Surgery Performed Operation Date: 09/01/19 12:45 Actual Procedures p Total Knee Arthroplasty(Right) - Meir Mustafa MD Physical Therapy Treatment Note M2 PT-IP Current Condition Start: 09/02/19 08:58 Freq: NEEDED Status: Active Protocol: Document 09/02/19 11:35 AW (Rec: 09/02/19 11:56 AW [id number]) Physical Therapy Current Condition Current Condition Evaluation Date 09/02/19 Treatment Diagnosis R TKA; difficulty in walking Onset Date 09/01/19 Weight Bearing Status Weight Bearing Status Weight Bear as Tolerated M3 PT-IP Subjective Start: 09/02/19 08:58 Freq: NEEDED Status: Active Protocol: Document 09/04/19 09:34 KS (Rec: 09/04/19 11:53 KS [id number]) Subjective Physical Therapy Visit Type Type Treatment Note Visit Start Time 09:34 Visit Stop Time 10:08 Total Visit Minutes 34 Number of SALES OPERATIONS COORDINATOR Visits 2 Physical Therapy Visit Comments Patient Comments Pt agreed to mobilize with therapy. Therapy Pain Assessment Pain When Pain Assessed During Mobility Pain Present Pain Present Pain Reported Location Right Knee Intensity 6 Scale Used Numeric (0 - 10) Pain Behaviors Guarding Pain Management Techniques Apply Cold,Re-positioning, Timing of Activity with Medications M4 PT-IP Mobility and Gait Start: 09/02/19 08:58 Freq: NEEDED Status: Active Protocol: Document 09/04/19 09:34 KS (Rec: 09/04/19 11:53 KS [id number]) PT-Bed Mobility Assessment Supine to Sit Supine to Sit Contact Guard Assistance,1 Person Assistance,Head of Bed Elevated Sit to Supine Sit to Supine Minimal Assistance,1 Person Assistance Scooting Scooting to Edge of Bed Contact Guard Assistance PT-Transfer Assessment Sit to and From Stand Sit to and from Stand Minimal Assistance,1 Person Assistance,Use of Upper Extremities Equipment Transfer Assistive Device Gait Belt,Front Wheeled Walker Transfers Transfer Destination Bed Transfer Technique pt ambulated with FWW Transfer Ability Level of Assist Minimal Assistance,1 Person Assistance,Use of Upper Extremities Comments Mobility Comments Pt in bed upon arrival from therapy. CGA for sup<>sit w/ HOB slightly elevated. CGA for scooting to EOB. Max A for shoe application. Pt then sit< >stand from bed w/ FWW and Min A. Upon standing pt had posterior LOB x1 requiring Min A to recover. Pt denied dizziness or light headedness. Pt then ambulated ~50 ft around room w/ FWW and CGA to Min A. Pt did not experiencing LOB during ambulation. Pt ambulates w/ decreased stride length and foot clearance and requires cues for equal step length. Pt reports 6/10 pn during ambulation. Pt then returned to bed CGA and Min A for LE guidance into bed. Pt left in bed w/ all needs in reach. Gait Assessment Gait Gait Assistance Required: Contact Guard Assist,Minimum Assistance,1 Person Assist Distance (Feet) 50 Able to Maintain Weight Bearing Status Yes During Gait Assistive Devices Assistive Device Gait Belt,Front Wheeled Walker Gait Deviations General Gait Pattern Antalgic,Decreased Stride Length,Decreased Feet Clearance,Flexed Trunk,Step-to Gait Factors Limiting Gait Function Factors Limiting Gait Function Decreased Activity Tolerance, Decreased Sensation,Decreased Strength,Difficulty Following Directions,Limited Range of Motion,Pain,Poor Balance,Poor Safety Awareness Comments Gait Comments Please refer to mobility section for details. Stair Climbing Assessment Comments Stair Climbing Comments Not assessed. No stairs at home. PT-Balance Assessment Sitting Balance and Reactions Static Sitting Balance Ability Good Dynamic Sitting Balance Ability Good Standing Balance and Reactions Static Standing Balance Ability Fair Dynamic Standing Balance Ability Fair Device Used FWW M5 PT-IP Objective Assessments Start: 09/02/19 08:58 Freq: NEEDED Status: Active Protocol: Document 09/02/19 11:35 AW (Rec: 09/02/19 11:56 AW [email or web address]) Orientation Orientation/Cognition Level of Alertness Alert Orientation Name,Day of Week,Place, Situation Language Function Ability No Deficits Noted Safety Awareness Decreased Safety Awareness Memory Description No Deficits Noted Gross Range of Motion Lower Extremity ROM Assessment Right Impaired Strength Lower Extremity Strength Assessment Bilaterally Impaired Comments Strength Comments L LE grossly 4/5 Coordination Assessment Gross Coordination Gross Coordination WNL Sensation Assessment Sensation Gross Sensation Right LE Impaired Proprioception (Position) Impaired Muscle Tone Muscle Tone WNL Yes M6 PT-IP Treatment Start: 09/02/19 08:58 Freq: NEEDED Status: Active Protocol: Document 09/04/19 09:34 KS (Rec: 09/04/19 11:53 KS [id number]) Physical Therapy Treatment Exercises Exercises Ankle Pumps,Quad Sets,Heel Slides Education Education Provided Weight Bearing Status,Safety Other Treatments Other Treatment Performed Reviewed LE strengthening exercises. M7 PT-IP Assessment and Plan Start: 09/02/19 08:58 Freq: NEEDED Status: Active Protocol: Document 09/04/19 09:34 KS (Rec: 09/04/19 11:53 KS [id number]) PT Summary Assessment and Plan Potential Rehabilitation Potential Good Status of Condition at Evaluation Stable Summary Impairments Pain,ROM,Strength,Balance, Sensation,Bed Mobility, Transfers,Gait,Activity Tolerance Progress Towards Goals Slow Progress due to Pain,Slow Progress due to Activity Tolerance Assessment Summary Pt showed slight improvements w/ mobility and ambulation this treatment, but continues to have post LOB upon standing and needs Min A for sit<> stand and sit<>sup. Pt will benefit from continued acute rehab to improve strength, ambulation, and bed mobility. Anticipate she will be appropriate for d/c home w/ HHPT 09/04. Will require caregiver training for bed mobility and transfers prior to d/c. Goals Bed Mobility Goal Standby Assistance Transfer Goal Standby Assistance,Front Wheeled Walker Gait Goal Standby Assistance,Front Wheel Walker Gait Distance 150 Days to Meet Goals 4 Frequency of Treatment Frequency Of Treatment Twice a Day Treatment Plan Physical Therapy Treatment Plan Bed Mobility Training,Transfer Training,Gait Training, Therapeutic Exercise,Balance Retraining,Post Op Education, Discharge Planning,Hot or Cold Pack,Neuromuscular Re-ed Other Recommendations and Next Treatment transfers; gait training with Focus FWW; ther ex Recommendations To Nursing Amount of Assist Needed 1 Person Assist Discharge Recommendations PT Discharge Recommendations Home with Assistance,Home with 02/09 Assist,Home Health,SNF Rehab,Outpatient PT Transportation Needs at Discharge Private Vehicle
--- NOTE | 2019-09-04 11:04 | PM.PNPO.1 ---
Subjective Subjective Date Patient Seen: 09/04/19 Time Patient Seen: 11:04 Interval history: Postop day 3 status post right total knee arthroplasty with Dr. Mustafa. She has been taking Lovenox for DVT prophylaxis and cannot take ASA due to colitis. Her pain control is getting better today. She feels very unsteady working with physical therapy. She lives alone, but is having a friend stay with her for the next couple days. She will need home health at time of discharge. Exam Vital Signs (past 8 hours): - 09/04/19 05:28 09/04/19 08:08 Temperature 98.2 F 98.3 F Pulse Rate 93 H 16 L Respiratory Rate 19 16 Blood Pressure 137/91 H 154/85 H Pulse Oximetry 94 92 Oxygen Delivery Method Room Air Oxygen Flow Rate 0 Narrative Exam Narrative: Patient is sitting in her bed in no acute distress. She is alert oriented x3. Calves are soft, compressible, nontender bilaterally. Pulses are symmetrical. She is able to actively dorsiflex and plantar flex. Sensation intact light touch throughout bilateral lower extremities. Dressing on right knees CDI. Expected swelling and ecchymosis after surgery. Objective Labs Result Diagrams: 09/02/19 04:55 Assessment & Plan Post-op Postoperative Procedures: Procedures Operation Date: 09/01/19 12:45 Actual Procedures Side Surgeon p Total Knee Arthroplasty Right Meir Mustafa MD Patient will continue to mobilize with physical therapy today. Recommend caregiver training tomorrow. Will need home health with Kat at time of discharge. Continue current pain control. Patient states she has oxycodone at home already. Lovenox prescription in chart for a total of 10 days. Patient has been slow to mobilize. Patient will likely discharge home tomorrow morning. Quality VTE Deep Vein Thrombosis/Pulmonary Embolism Present on Admission: No
--- NOTE | 2019-09-04 12:56 | CM.DPNOTE ---
DCP Cont According to conversation w/ Ortho PA Enoc PTA, patient would benefit from an additional night in the hospital and DC home Friday w/[facility] and friends/family to assist. This [employer]OMAT[employer]DER SEAMER met w/patient w/Ortho PA and patient was agreeable to this plan. P: DC home expected tomorrow, w/ [facility] and family to transport, friends to assist JW
--- NOTE | 2019-09-04 14:09 | PT.IPTN ---
Current Diagnoses Unilateral primary osteoarthritis, right knee (09/03/19) Surgery Performed Operation Date: 09/01/19 12:45 Actual Procedures p Total Knee Arthroplasty(Right) - Meir Mustafa MD Physical Therapy Treatment Note M2 PT-IP Current Condition Start: 09/02/19 08:58 Freq: NEEDED Status: Active Protocol: Document 09/02/19 11:35 AW (Rec: 09/02/19 11:56 AW [email or web address]) Physical Therapy Current Condition Current Condition Evaluation Date 09/02/19 Treatment Diagnosis R TKA; difficulty in walking Onset Date 09/01/19 Weight Bearing Status Weight Bearing Status Weight Bear as Tolerated M3 PT-IP Subjective Start: 09/02/19 08:58 Freq: NEEDED Status: Active Protocol: Document 09/04/19 13:36 KS (Rec: 09/04/19 15:01 KS [id number]) Subjective Physical Therapy Visit Type Type Treatment Note Visit Start Time 13:36 Visit Stop Time 14:09 Total Visit Minutes 33 Number of KNIFER UP Visits 3 Physical Therapy Visit Comments Patient Comments Pt agreed to mobilize with therapy. Therapy Pain Assessment Pain When Pain Assessed During Mobility Pain Present Pain Present Pain Reported Location Right Knee Intensity 5 Scale Used Numeric (0 - 10) 6/10 after treatment Pain Behaviors Guarding Pain Management Techniques Re-positioning,Timing of Activity with Medications M4 PT-IP Mobility and Gait Start: 09/02/19 08:58 Freq: NEEDED Status: Active Protocol: Document 09/04/19 13:36 KS (Rec: 09/04/19 15:01 KS [id number]) PT-Bed Mobility Assessment Sit to Supine Sit to Supine Contact Guard Assistance,1 Person Assistance Scooting Scooting to Edge of Bed Contact Guard Assistance PT-Transfer Assessment Sit to and From Stand Sit to and from Stand Contact Guard Assistance,1 Person Assistance,Use of Upper Extremities Equipment Transfer Assistive Device Gait Belt,Front Wheeled Walker Transfers Transfer Destination Bed Transfer Technique pt ambulated with FWW Transfer Ability Level of Assist Contact Guard Assistance,1 Person Assistance,Use of Upper Extremities Comments Mobility Comments Pt in bed upon arrival from therapy. CGA for sup<>sit w/ use of gait belt to self assist RLE out of bed. CGA for scooting to EOB and CGA w/ cues for hand placement for sit<>stand w/ FWW. Pt did not have LOB upon standing this treatment. She then ambulated ~80 ft w/ FWW and CGA. Pt continues to require cues for equal step length and quad activation, but demonstrated good use of FWW. Decreased stride d/t pain and weakness. Pt returned to room, CGA for stand<>sit, pt had poor control w/ descent and performed descent again w/ cues for proper hand placement which helped her show better control. CGA for sit<>sup in bed w/ use of gait belt for RLE guidance. Pt able to almost completely karel/doff shoes on her own, but required Min A for R foot d/t swelling and limited ROM. Pt requires shoes w/ orthotics for ambulation. Pt left in bed w/ all needs in reach and SCDs on. Gait Assessment Gait Gait Assistance Required: Contact Guard Assist,1 Person Assist Distance (Feet) 80 Able to Maintain Weight Bearing Status Yes During Gait Assistive Devices Assistive Device Gait Belt,Front Wheeled Walker Gait Deviations General Gait Pattern Antalgic,Decreased Stride Length,Decreased Feet Clearance,Flexed Trunk,Step-to Gait Factors Limiting Gait Function Factors Limiting Gait Function Decreased Activity Tolerance, Decreased Sensation,Decreased Strength,Difficulty Following Directions,Limited Range of Motion,Pain,Poor Balance,Poor Safety Awareness Comments Gait Comments Please refer to mobility section for details. Stair Climbing Assessment Comments Stair Climbing Comments Not assessed. No stairs at home. PT-Balance Assessment Sitting Balance and Reactions Static Sitting Balance Ability Good Dynamic Sitting Balance Ability Good Standing Balance and Reactions Static Standing Balance Ability Fair Dynamic Standing Balance Ability Fair Device Used FWW M5 PT-IP Objective Assessments Start: 09/02/19 08:58 Freq: NEEDED Status: Active Protocol: Document 09/02/19 11:35 AW (Rec: 09/02/19 11:56 AW [email or web address]) Orientation Orientation/Cognition Level of Alertness Alert Orientation Name,Day of Week,Place, Situation Language Function Ability No Deficits Noted Safety Awareness Decreased Safety Awareness Memory Description No Deficits Noted Gross Range of Motion Lower Extremity ROM Assessment Right Impaired Strength Lower Extremity Strength Assessment Bilaterally Impaired Comments Strength Comments L LE grossly 4/5 Coordination Assessment Gross Coordination Gross Coordination WNL Sensation Assessment Sensation Gross Sensation Right LE Impaired Proprioception (Position) Impaired Muscle Tone Muscle Tone WNL Yes M6 PT-IP Treatment Start: 09/02/19 08:58 Freq: NEEDED Status: Active Protocol: Document 09/04/19 13:36 KS (Rec: 09/04/19 15:01 KS [id number]) Physical Therapy Treatment Education Education Provided Safety Other Treatments Other Treatment Performed Attempted to schedule caregiver training, pt did not get in contact this afternoon but states she will schedule a time w/ her friend Batsheva for tomorrow afternoon. M7 PT-IP Assessment and Plan Start: 09/02/19 08:58 Freq: NEEDED Status: Active Protocol: Document 09/04/19 13:36 KS (Rec: 09/04/19 15:01 RI [id number]) PT Summary Assessment and Plan Potential Rehabilitation Potential Good Status of Condition at Evaluation Stable Summary Impairments Pain,ROM,Strength,Balance, Sensation,Bed Mobility, Transfers,Gait,Activity Tolerance Progress Towards Goals Slow Progress due to Pain,Slow Progress due to Activity Tolerance Assessment Summary Pt showed improvements w/ bed mobility and ambulation today. CGA for sup<>sit, sit<>stand, and ambulation w/ FWW. She requires cues for hand placement and sequencing for transfers, as well as equal step length and quad activation when ambulating. Pt ambulated ~80 ft w/ FWW and reported fatigue following. Pt still unable to karel shoes on her own. She will need caregiver training prior to d/ c for bed mobility, transfers, and ambulation. Check in w/ pt in AM on 09/04 to see if a time has been scheduled. Pt will benefit from HHPT to improve strength and mobility. Goals Bed Mobility Goal Standby Assistance Transfer Goal Standby Assistance,Front Wheeled Walker Gait Goal Standby Assistance,Front Wheel Walker Gait Distance 150 Days to Meet Goals 4 Frequency of Treatment Frequency Of Treatment Twice a Day Treatment Plan Physical Therapy Treatment Plan Bed Mobility Training,Transfer Training,Gait Training, Therapeutic Exercise,Balance Retraining,Post Op Education, Discharge Planning,Hot or Cold Pack,Neuromuscular Re-ed Other Recommendations and Next Treatment transfers; gait training with Focus FWW; ther ex, careigver training prior to d/c Recommendations To Nursing Amount of Assist Needed 1 Person Assist Discharge Recommendations PT Discharge Recommendations Home with Assistance,Home with / Assist,Home Health,SNF Rehab,Outpatient PT Transportation Needs at Discharge Private Vehicle
[2019-09-04] MEDS: ALPRAZolam 0.5 MG TABLET PO (21:03)
[2019-09-04] MEDS: SIMVASTATIN 20 MG TABLET PO (21:03)
--- NOTE | 2019-09-04 21:34 | PC.NURSE ---
IV site infiltrated and leaking. Pt requests to be left out. Order obtained from administration dean surgeon, see communication order.
--- NOTE | 2019-09-04 23:41 | PC.NURSE ---
Addendum entered by Jaki Montano R.N. 09/05/19 06:03: Complains of 5/10 right knee pain; medicated with Oxycodone. Original Note: Patient is alert and oriented. Breath sounds CTA with RA sat of 95%. HRR. Denies nausea. BT present and is passing flatus but last BM was 08/30; already received Miralax + Colace so given prune juice at this time. Denies dysuria, frequency or urgency with urination. Is able to turn self in bed. Up to bathroom with walker and 1 assist. Aquacel dressing to right knee intact with spots of drainage noted; surrounding swelling. States pain is 5/10 but tolerating pain after having just received pain med at 2246; ice pack applied. Has Allevyn dressing to right anterior leach which is CDI. Bruising noted on bilateral UE and above right knee dressing. CMS intact bilaterally. Declines to have SCD's on at this time so reminded to ankle wave; verbalizes understanding. Fall risk score is moderate; bed alarm is activated.
[2019-09-05] MEDS: OXYCODONE IR 5 MG TABLET PO ×4 (02:36→12:10)
[2019-09-05 07:33] VITALS: BP 152/83; PULSE 82; RESP 18; TEMP 36.9; O2SAT 95
--- NOTE | 2019-09-05 08:22 | P.DS_ITS ---
History of Present Illness History of Present Illness Chief complaint: Right Total Knee Arthroplasty Discharge Providers Provider Date of admission: 09/03/19 14:26 Discharge Date: 09/05/19 Consults: 09/01/19 17:12 Consult to Discharge Planning Routine Comment: Consult to Physical Therapy Evaluate & Treat Comment: Physician Instructions: postop TKA protocol Consult to Respiratory Therapy Evaluate & Treat Comment: Physician Instructions: Evaluate and treat Discharge provider: Elías Hendrix MD Summary Hospital Course Discharge Diagnosis: patient is status post a right total knee arthroplasty Hospital Course: patient admitted for right knee end-stage arthritis and underwent a right total knee arthroplasty Status at Discharge Cognitive/behavioral status at discharge: oriented Functional status at discharge: uses cane/walker Overall status at discharge: patient is progressing back to baseline Time Spent with Patient Time spent: Less than 30 minutes Exam Vital Signs (past 8 hours): - 09/05/19 07:33 Temperature 98.5 F Pulse Rate 82 Respiratory Rate 18 Blood Pressure 152/83 H Pulse Oximetry 95 Oxygen Delivery Method Room Air Oxygen Flow Rate 0 Narrative Exam Narrative: patient's dressing is clean and dry. Positive dorsiflexion and plantar flexion to the toes and ankles. 5/5 strength in dorsiflexion and nessa ntar flexion as well as extensor hallucis longus. Nontender to palpation to the posterior aspect of the bilateral calves. Objective Labs Result Diagrams: 09/02/19 04:55 Discharge Assessment & Plan Assessment and Plan Assessment: Patient with right end-stage knee arthritis status post total knee arthroplasty Plan of Treatment: patient underwent a total knee arthroplasty and is now ready to be discharged home Discharge Plan Discharge Plan Patient Disposition: Home Discharge orders & Medications Prescriptions: New enoxaparin [Lovenox] 40 mg/0.4 mL Syringe 40 mg SUBCUT DAILY 6 Days Qty: 2.4 RF: 0 Continued acetaminophen [Tylenol Extra Strength] 500 mg Tablet 1,000 mg PO Q4H PRN (Reason: Pain) RF: 0 alprazolam [Xanax] 0.5 mg Tablet 0.5 mg PO BEDTIME RF: 0 simvastatin 20 mg Tablet 20 mg PO BEDTIME RF: 0 budesonide [Entocort EC] 3 mg Capsule,Delayed,Extend.Release 3 mg PO DAILY RF: 0 colestipol 1 gram Tablet 1 g PO QD-BID RF: 0 fluoxetine [Prozac] 10 mg Capsule 10 mg PO DAILY RF: 0 Follow up/Referrals: Meir Mustafa MD [Physician] - 2 Weeks Diet/Activity/Treatments Diet: Regular Activity: May progress activity and weight-bearing as tolerated. Mcghee knee range of motion exercises. Cold/Heat Therapy: May ice the knee for 20 minutes at a time for pain. Skin/Wound/Dressing Care Report to your healthcare provider any signs of infection, such as:: chills, fever, increased pain, unusual drainage and unusual redness Dressing: May leave dressing in place for 7-10 days. May shower over dressing. Leave closure device on skin in place until follow-up. Visit Report/Discharge Packet Instructions: DI for Knee Replacement, How to Prevent Falls, DI for Postoperative Pain, DI for Prescription Opioid Use, Enoxaparin Injection Quality VTE Deep Vein Thrombosis/Pulmonary Embolism Present on Admission: No
[2019-09-05] MEDS: FLUoxetine 10 MG CAPSULE PO (08:49)
[2019-09-05] MEDS: ACETAMINOPHEN 325 MG TABLET 650 MG PO (08:49)
[2019-09-05] MEDS: DOCUSATE 100 MG CAPSULE PO (08:49)
[2019-09-05] MEDS: ENOXAPARIN 40 MG/0.4 ML SYRINGE SUBCUT (08:49)
[2019-09-05] MEDS: BUDESONIDE 3 MG CAP PO (08:49)
[2019-09-05] MEDS: polyethylene glycoL 3350 17 GM POWD.PACK PO (08:50)
--- NOTE | 2019-09-05 09:56 | PC.NURSE ---
Pt resting in bed after breakfast. Able to give herself her Lovenox injection without difficulty. Gave miralax and stool softener to assist with bowel movement and encouraged fluid intake. Pt denies needs at this time and is deciding whether she would like to have a bath or a shower today. Pt had a bed bath yesterday.
--- NOTE | 2019-09-05 09:58 | PT.IPTN ---
Current Diagnoses Unilateral primary osteoarthritis, right knee (09/03/19) Surgery Performed Operation Date: 09/01/19 12:45 Actual Procedures p Total Knee Arthroplasty(Right) - Meir Mustafa MD Physical Therapy Treatment Note M2 PT-IP Current Condition Start: 09/02/19 08:58 Freq: NEEDED Status: Active Protocol: Document 09/02/19 11:35 AW (Rec: 09/02/19 11:56 AW [email or web address]) Physical Therapy Current Condition Current Condition Evaluation Date 09/02/19 Treatment Diagnosis R TKA; difficulty in walking Onset Date 09/01/19 Weight Bearing Status Weight Bearing Status Weight Bear as Tolerated M3 PT-IP Subjective Start: 09/02/19 08:58 Freq: NEEDED Status: Active Protocol: Document 09/05/19 09:19 LJ (Rec: 09/05/19 09:58 LJ [id number]) Subjective Physical Therapy Visit Type Type Treatment Note Visit Start Time 09:19 Visit Stop Time 09:36 Total Visit Minutes 15 Number of [employer] Visits 4 Physical Therapy Visit Comments Patient Comments Pt agreed to mobilize with therapy. Therapy Pain Assessment Pain When Pain Assessed During Mobility Pain Present Pain Present Pain Reported M4 PT-IP Mobility and Gait Start: 09/02/19 08:58 Freq: NEEDED Status: Active Protocol: Document 09/05/19 09:19 LJ (Rec: 09/05/19 09:58 LJ [id number]) PT-Bed Mobility Assessment Supine to Sit Supine to Sit Standby Assistance Sit to Supine Sit to Supine Standby Assistance Scooting Scooting to Edge of Bed Standby Assistance PT-Transfer Assessment Sit to and From Stand Sit to and from Stand Standby Assistance,Use of Upper Extremities Equipment Transfer Assistive Device Gait Belt,Front Wheeled Walker Transfers Transfer Destination Bed Transfer Technique Forward/Backward Scoot Transfer Ability Level of Assist Standby Assistance,Use of Upper Extremities Comments Mobility Comments Pt in bed having received pain medication within he past 1/2 hour. Gait Assessment Gait Gait Assistance Required: Standby Assistance Distance (Feet) 100 Able to Maintain Weight Bearing Status Yes During Gait Assistive Devices Assistive Device Gait Belt,Front Wheeled Walker Gait Deviations General Gait Pattern Antalgic,Decreased Stride Length,Decreased Feet Clearance,Flexed Trunk,Step-to Gait Factors Limiting Gait Function Factors Limiting Gait Function Decreased Activity Tolerance, Decreased Sensation,Decreased Strength,Limited Range of Motion,Pain,Poor Balance,Poor Safety Awareness Comments Gait Comments Pt is SBA for all bed mobility . Used gait belt appropriately to assist RLE onto bed. She was able to stand from the bed using the FWW and pushing off the bed upon the second attempt. Didn't push off with first attempt bue did so without cueing the second time . Pt moves slowly and does not put much weight on RLE during first couple of minutes ambulating but successfully attempted weight bearing during ambulation in hallway. She is careful to avoid twisting her knee while turning and is attempting to normalize her gait step pattern. Pt returned to bed and [employer] provided ice packs for knee. Stair Climbing Assessment Comments Stair Climbing Comments Not assessed. No stairs at home. M5 PT-IP Objective Assessments Start: 09/02/19 08:58 Freq: NEEDED Status: Active Protocol: Document 09/02/19 11:35 AW (Rec: 09/02/19 11:56 AW [id number]) Orientation Orientation/Cognition Level of Alertness Alert Orientation Name,Day of Week,Place, Situation Language Function Ability No Deficits Noted Safety Awareness Decreased Safety Awareness Memory Description No Deficits Noted Gross Range of Motion Lower Extremity ROM Assessment Right Impaired Strength Lower Extremity Strength Assessment Bilaterally Impaired Comments Strength Comments L LE grossly 4/5 Coordination Assessment Gross Coordination Gross Coordination WNL Sensation Assessment Sensation Gross Sensation Right LE Impaired Proprioception (Position) Impaired Muscle Tone Muscle Tone WNL Yes M6 PT-IP Treatment Start: 09/02/19 08:58 Freq: NEEDED Status: Active Protocol: Document 09/05/19 09:19 LJ (Rec: 09/05/19 09:58 LJ [id number]) Physical Therapy Treatment Education Education Provided Weight Bearing Status,Safety M7 PT-IP Assessment and Plan Start: 09/02/19 08:58 Freq: NEEDED Status: Active Protocol: Document 09/05/19 09:19 LJ (Rec: 09/05/19 09:58 LJ [id number]) PT Summary Assessment and Plan Potential Rehabilitation Potential Good Status of Condition at Evaluation Stable Summary Impairments Pain,ROM,Strength,Balance,Gait ,Activity Tolerance Progress Towards Goals Safe For Discharge Assessment Summary Pt able to get into and out of bed and transfer sit<>stand independently with use of gait belt assist for RLE and FWW for standing. Pt is safe for D /C home with HH and assistance of friend. Goals Bed Mobility Goal Standby Assistance Transfer Goal Standby Assistance,Front Wheeled Walker Gait Goal Standby Assistance,Front Wheel Walker Gait Distance 150 Days to Meet Goals 4 Frequency of Treatment Frequency Of Treatment Twice a Day Treatment Plan Physical Therapy Treatment Plan Bed Mobility Training,Transfer Training,Gait Training, Therapeutic Exercise,Balance Retraining,Post Op Education, Discharge Planning,Hot or Cold Pack,Neuromuscular Re-ed Other Recommendations and Next Treatment transfers; gait training with Focus FWW; ther ex, careigver training prior to d/c Recommendations To Nursing Amount of Assist Needed 1 Person Assist Discharge Recommendations PT Discharge Recommendations Home with Assistance,Home with / Assist,Home Health Transportation Needs at Discharge Private Vehicle
--- NOTE | 2019-09-05 10:56 | CM.DPC ---
DCP Continued: EMR reviewed: Patient is being D/C home today with Kat LAWSON. Cm/RN faxed F2F and clinicals to Kat LAWSON and will send D/C summary to Kat LAWSON today. F2F placed in green folder on [facility]'s desk for her to scan into patient chart. Patient notified and stated understanding of D/C plan. Constance Kat RN
--- NOTE | 2019-09-05 13:40 | PT.IPTN ---
Current Diagnoses Unilateral primary osteoarthritis, right knee (09/03/19) Surgery Performed Operation Date: 09/01/19 12:45 Actual Procedures p Total Knee Arthroplasty(Right) - Meir Mustafa MD Physical Therapy Treatment Note M2 PT-IP Current Condition Start: 09/02/19 08:58 Freq: NEEDED Status: Active Protocol: Document 09/02/19 11:35 AW (Rec: 09/02/19 11:56 AW [email or web address]) Physical Therapy Current Condition Current Condition Evaluation Date 09/02/19 Treatment Diagnosis R TKA; difficulty in walking Onset Date 09/01/19 Weight Bearing Status Weight Bearing Status Weight Bear as Tolerated M3 PT-IP Subjective Start: 09/02/19 08:58 Freq: NEEDED Status: Active Protocol: Document 09/05/19 13:14 LJ (Rec: 09/05/19 13:40 LJ [id number]) Subjective Physical Therapy Visit Type Type Treatment Note Visit Start Time 13:14 Visit Stop Time 13:31 Total Visit Minutes 17 Number of [employer]PER[employer] Visits 5 Physical Therapy Visit Comments Patient Comments Pt agreed to mobilize with therapy. Therapy Pain Assessment Pain When Pain Assessed During Mobility Pain Present Pain Present Pain Reported M4 PT-IP Mobility and Gait Start: 09/02/19 08:58 Freq: NEEDED Status: Active Protocol: Document 09/05/19 13:14 LJ (Rec: 09/05/19 13:40 LJ [id number]) PT-Bed Mobility Assessment Supine to Sit Supine to Sit Standby Assistance Sit to Supine Sit to Supine Standby Assistance Scooting Scooting to Edge of Bed Standby Assistance PT-Transfer Assessment Sit to and From Stand Sit to and from Stand Standby Assistance,Use of Upper Extremities Equipment Transfer Assistive Device Gait Belt,Front Wheeled Walker Transfers Transfer Destination Bed Transfer Technique Forward/Backward Scoot Transfer Ability Level of Assist Standby Assistance,Use of Upper Extremities Comments Mobility Comments Pt able to get out of bed independently Gait Assessment Gait Gait Assistance Required: Standby Assistance Distance (Feet) 100 Able to Maintain Weight Bearing Status Yes During Gait Assistive Devices Assistive Device Gait Belt,Front Wheeled Walker Gait Deviations General Gait Pattern Antalgic,Decreased Stride Length,Decreased Feet Clearance,Step-to Gait Factors Limiting Gait Function Factors Limiting Gait Function Decreased Activity Tolerance, Decreased Sensation,Decreased Strength,Limited Range of Motion,Pain,Poor Balance,Poor Safety Awareness Comments Gait Comments Pt used personal FWW this time for ambulation. Increased weight bearing on RLE and ability to utilize step- through gait pattern. Less trunk flexion this session. Dtr inlaw present for CGT shown how to assist pt with ambulation and mobilization if needed. Stair Climbing Assessment Comments Stair Climbing Comments Not assessed. No stairs at home. M5 PT-IP Objective Assessments Start: 09/02/19 08:58 Freq: NEEDED Status: Active Protocol: Document 09/02/19 11:35 AW (Rec: 09/02/19 11:56 AW [email or web address]) Orientation Orientation/Cognition Level of Alertness Alert Orientation Name,Day of Week,Place, Situation Language Function Ability No Deficits Noted Safety Awareness Decreased Safety Awareness Memory Description No Deficits Noted Gross Range of Motion Lower Extremity ROM Assessment Right Impaired Strength Lower Extremity Strength Assessment Bilaterally Impaired Comments Strength Comments L LE grossly 4/5 Coordination Assessment Gross Coordination Gross Coordination WNL Sensation Assessment Sensation Gross Sensation Right LE Impaired Proprioception (Position) Impaired Muscle Tone Muscle Tone WNL Yes M6 PT-IP Treatment Start: 09/02/19 08:58 Freq: NEEDED Status: Active Protocol: Document 09/05/19 13:14 LJ (Rec: 09/05/19 13:40 LJ [id number]) Physical Therapy Treatment Education Education Provided Safety M7 PT-IP Assessment and Plan Start: 09/02/19 08:58 Freq: NEEDED Status: Active Protocol: Document 09/05/19 13:14 LJ (Rec: 09/05/19 13:40 LJ [id number]) PT Summary Assessment and Plan Potential Rehabilitation Potential Good Status of Condition at Evaluation Stable Summary Impairments Pain,ROM,Strength,Balance,Gait ,Activity Tolerance Progress Towards Goals Safe For Discharge Assessment Summary Pt able to get into and out of bed and transfer sit<>stand independently with use of gait belt assist for RLE and FWW from home. Pt demonstrated improved gait pattern and had fewer complaints of pain. She successfully managed personal FWW her dtr inlaw brought from home. Pt is safe for DC home Goals Bed Mobility Goal Standby Assistance Transfer Goal Standby Assistance,Front Wheeled Walker Gait Goal Standby Assistance,Front Wheel Walker Gait Distance 150 Days to Meet Goals 5 Frequency of Treatment Frequency Of Treatment Twice a Day Treatment Plan Physical Therapy Treatment Plan Bed Mobility Training,Transfer Training,Gait Training, Therapeutic Exercise,Balance Retraining,Post Op Education, Discharge Planning,Hot or Cold Pack,Neuromuscular Re-ed Recommendations To Nursing Amount of Assist Needed 1 Person Assist Discharge Recommendations PT Discharge Recommendations Home with Assistance,Home Health Transportation Needs at Discharge Private Vehicle
== END 2019-09-05 13:30 | disposition home health service (06) | DRG 470 ==
LOC: OR 14:59 → AC 14:59
PROVIDERS: Admitting Provider Orthopaedic Surgery; Referring Provider Orthopaedic Surgery; Visit Provider Orthopaedic Surgery
PROC: 0SRC0JZ Replacement of Right Knee Joint with Synthetic Substitute, Open Approach (ICD-10-PCS; CPT 27447; principal; 2019-09-01 12:45)
DX: M17.11 Unilateral primary osteoarthritis, right knee (principal); F41.9 Anxiety disorder, unspecified; E78.5 Hyperlipidemia, unspecified; G89.18 Other acute postprocedural pain
CPT/HCPCS: 36415; 73560; 85014; 85018; 97110; 97116; 97161; 97530; C1776; G0378; C9290; J0690; J1100; J1170; J1650; J2250; J2405; J2704; J2765; J3010